=== PATIENT | male | born 1995 | race African-American/Black ===

== ENCOUNTER 2021-08-26 03:46 | Emergency (ER) | payer OTHER ==
[~2021-08-26] VITALS: Ht 177.8 cm; Wt 59.0 kg
[2021-08-26] MEDS ORDERED: AUGMENTIN 875-1 EACH PO ×2 (04:25)
[2021-08-26 04:30] VITALS: BP 128/70
== END 2021-08-26 04:30 | disposition home or self-care (01) ==
LOC: M.ERS 03:46
DX: S51.852A Open bite of left forearm, initial encounter (principal); S51.851A Open bite of right forearm, initial encounter; J45.909 Unspecified asthma, uncomplicated; Z91.048 Other nonmedicinal substance allergy status; W54.0XXA Bitten by dog, initial encounter; Y93.89 Activity, other specified; Y92.89 Other specified places as the place of occurrence of the external cause; Y99.8 Other external cause status